=== PATIENT | male | born 1975 | race Caucasian/White ===

== ENCOUNTER → 2016-07-18 | Outpatient (CLI) | payer OTHER ==
[~2016-07-18] MED LIST: GAS RELIEF 8080 MG PO; HUMALOG100 UNIT/1 SUBQ; KEFLEX500 MG PO; LANTUS SOL100 UNIT/1 SQ; LASIX 20 MG TAB20 MG PO; MORPHINE IR PO; MS CONTIN15 MG PO; NUCYNTA100 MG PO
== END ==
LOC: HYPER 07:03
DX: L89.619 Pressure ulcer of right heel, unspecified stage (principal); E11.621 Type 2 diabetes mellitus with foot ulcer; L97.811 Non-pressure chronic ulcer of other part of right lower leg limited to breakdown of skin; E11.51 Type 2 diabetes mellitus with diabetic peripheral angiopathy without gangrene; Z87.891 Personal history of nicotine dependence

== ENCOUNTER 2016-07-25 17:51 | Inpatient (IN) | payer OTHER ==
[~2016-07-25] VITALS: Ht 185.4 cm; Wt 95.3 kg
--- NOTE | ~2016-07-25 | HC ---
[facility] [place] [address] CONSULTATION Name: GURMEET MONREAL Room #: 427-P [facility] IN M.R.#: [id number] Admission: 07/25/16 Attend Phys: Madeline Adames MD Discharge: Date of : 77 Report #: [id number] THIS REPORT FOR: //name// CC: Madeline Adames DATE OF SERVICE: 07/26/2016 PERSONAL PHYSICIAN: Madeline Adames MD CHIEF COMPLAINT: Right foot cellulitis and abscess. HISTORY OF PRESENT ILLNESS: This is a white male who was seen yesterday in my wound clinic on an urgent walk-in basis for evaluation of progressive swelling and redness of his right lateral ankle region. The patient has currently been treated for the past several weeks for ulceration on the plantar aspect of his right heel. I saw the patient just 5 days ago and the patient seemed to be doing well. The patient states that just in the past 1-2 days, he has noticed increasing swelling in his right lateral ankle and had called in initially to be evaluated on Friday afternoon. However, we did not have any openings in the clinic. The patient was referred to the Emergency Department; however, he refused to go there. The patient then called yesterday morning, once again was stating that he was having progressive swelling and chills. The patient once again was referred to the Emergency Department, but states he would not go there. He wanted to come to the clinic. The patient was offered a walk-in time. I saw the patient and the patient did have a significant amount of edema and fluctuance consistent with an abscess on the right lateral ankle that was not present 5 days ago. The patient states he has had chills, but no fevers. The patient states he has had generalized malaise and loss of appetite. The patient denies any new trauma to the site. The patient denies any other associated complaints. PAST MEDICAL HISTORY: Significant for: 1. Cellulitis to right lower extremity approximately 1 month ago. 2. History of reflex sympathetic dystrophy. 3. History of lymphedema to right lower extremity. 4. History of inguinal lymphadenopathy found incidentally on a venous insufficiency Doppler. 5. The patient has type 2 diabetes, insulin-dependent. CURRENT MEDICATIONS: Multiple, I reviewed the patient's medication list. DRUG ALLERGIES: PENICILLIN and TRAMADOL. SOCIAL HISTORY: The patient has a history of smoking in the past, quit approximately 2 months ago. The patient denies alcohol use. [address] [address] CONSULTATION Name: GURMEET MONREAL Room #: 427-P [facility] IN .R.#: [id number] Admission: 07/25/16 Attend Phys: Madeline Adames MD Discharge: Date of : 77 Report #: [id number] FAMILY HISTORY: Not pertinent to current medical condition. REVIEW OF SYSTEMS: CONSTITUTIONAL: The patient has chills, but no fevers. NEUROLOGIC: The patient complained of generalized weakness, but no isolated weakness in arms or legs. EYES: No complaints. ENT: No complaints. CARDIAC: The patient has chronic lower extremity edema, right much greater than left, consistent with lymphedema, but no chest pain or palpitations. RESPIRATORY: The patient denies shortness breath, cough, wheezes. GASTROINTESTINAL: The patient denies generalized anorexia, but no nausea, vomiting, diarrhea or abdominal pain. GENITOURINARY: The patient denies urgency or frequency. MUSCULOSKELETAL: The patient has pain in his right lower extremity, specifically around the heel and ankle. SKIN: There is an open wound on the plantar aspect of the right heel as well as pustular abscess on the right lateral ankle. PHYSICAL EXAMINATION: VITAL SIGNS: T-max 36.9. Rest of his vitals are stable. GENERAL: This is an alert and oriented x 3, chronically ill-appearing white male who is in viyi-gg-jepzlkzb distress secondary to symptoms as well as anxiety. HEENT: Normocephalic, atraumatic. Mucous membranes are dry. Pupils are round. Sclerae white. NECK: Supple without JVD. LUNGS: Clear. HEART: Regular. ABDOMEN: Soft, nontender. EXTREMITIES: The patient has 3-4+ edema in the right lower extremity consistent with lymphedema. On the plantar aspect of the right heel, there is an open ulceration, which is a mix of granulation and slough, which probes on the medial aspect of the heel into the pustular swelling on the lateral aspect of the ankle. I went in approximately 10 cm. There is a seropurulent drainage coming from the plantar aspect of the foot as well as the lateral pustular lesion. There is increased erythema, warmth and tenderness along the site. Left lower extremity has 1-2+ edema without any open ulcerations. NEUROLOGIC: Cranial nerves 2-12 are grossly. Motor and sensory are grossly intact. LABORATORY DATA: White count 13.1, hemoglobin 8.9. Electrolytes within normal limits. BUN 11 and creatinine 0.7. Glucose on admission was 149. C-reactive protein is markedly elevated at 91.6, prealbumin low at 9.6, albumin low at 2.3. Sed rate was elevated at 81. MRI of the right foot is pending. [address] [address] CONSULTATION Name: GURMEET MONREAL Room #: 427-P [facility] IN .R.#: [id number] Admission: 07/25/16 Attend Phys: Madeline Adames MD Discharge: Date of : 77 Report #: [id number] WOUND CARE COURSE: At this time, I spoke at length with the patient. I told the patient that he is going to at least need incision and drainage of the abscess, if not possible surgical debridement and possibly even an amputation of the right lower extremity. He is very adamant that he does not want an amputation and will discuss this with the orthopedic physicians. Infectious Disease has started him on broad spectrum antibiotics. We will continue to watch the patient very closely. We will continue localized wound care, pending the surgical intervention by Orthopedics. IMPRESSION: 1. Chronic ulceration, plantar aspect of the right heel with subsequent cellulitis, now with abscess formation over the right lateral ankle. 2. Type 2 diabetes. 3. Chronic regional pain syndrome, right lower extremity. 4. Lymphedema, right lower extremity. PLAN: Described as above. We will continue to follow the patient. We will continue with local wound care as well as IV antibiotics. Orthopedic intervention for surgical debridement. <ELECTRONICALLY SIGNED> By: Andriy Bethea MD 07/29/16 1022 1116 13 Andriy Bethea MD /nt
--- NOTE | ~2016-07-25 | D ---
[facility] [place] [address] DISCHARGE SUMMARY Name: GURMEET MONREAL Room #: 427-P [facility] IN M.R.#: [id number] Admission: 07/25/16 Attend Phys: Madeline Adames MD Discharge: 07/29/16 Date of : 77 Report #: [id number] THIS REPORT FOR: //name// CC: Madeline Adames DATE OF SERVICE: 07/29/2016 HOSPITAL COURSE: The patient is a 41-year-old diabetic with chronic lymphedema and complex regional pain syndrome/reflex sympathetic dystrophy of his lower extremities who has had previous hospitalization for an abscess and it appeared now rehospitalization for progressing wound of his right lower extremity. He was a direct admission from the wound clinic. An MRI showed significant progression of the cellulitis, abscess and now apparent osteomyelitis of his right foot. Consultation was obtained from Dr. Ratliff for infectious disease as well as Orthopedics for I and D, debridement, and possible amputation. On admission, his labs included an elevated white count of 13.1, low hemoglobin of 8.9, hematocrit 28 and elevated platelets of 730,000. His prealbumin was 9.6. His albumin was 2.3. His CRP was markedly elevated at 91.6 and a sed rate at 81. His glucose was 149. His differential had 72% segs, 3% bands, 15% lymphs. In addition, he has had recently been noted to have very marked lymphadenopathy which was unclear whether this was a reactive adenopathy or contributor to the severe lymphedema that he was suffering in that leg, so in addition to the above consultations, an interventional radiology consult was obtained for lymph node biopsies. This was done by Dr. Rodriguez on 07/26/2016. An MRI done on that day showed marked worsening of the appearance of the ankle with diffuse infection over an open heel wound, large lateral soft tissue abscess, infectious tenosynovitis, septic talotibial and talonavicular arthrosis and multifocal osteomyelitis. The patient was taken to the operating room by Dr. Molina on 07/26/2016 where they did an I and D of the foot and ankle and a placement of a [place] drain in the right foot, they appeared to do an irrigation, but not sharp debridement. It had been discussed with the patient to do an amputation, but he was unwilling to consider that option at this time. Because of this, he confirmed osteomyelitis with cultures positive for Cedecea and enterococcus faecalis, so arrangements were made for home IV antibiotics. A PICC line was placed. Pathology still pending from the lymph node biopsy. FINAL DIAGNOSES: Chronic ulceration of the right heel and ankle with some cellulitis, abscess formation and osteomyelitis, type 2 diabetes, complex regional pain syndrome, lymphedema, lymphadenopathy, moderate malnutrition present on admission, left tibial plateau fracture. [address] [address] DISCHARGE SUMMARY Name: GURMEET MONREAL Room #: 427-P [facility] IN M.R.#: [id number] Admission: 07/25/16 Attend Phys: Madeline Adames MD Discharge: 07/29/16 Date of : 77 Report #: [id number] PROCEDURE DONE: I and D of right foot and ankle, placement of Christine drain on right foot. There was irrigation, debridement noted on the operative report. By: 1818 0041 Madeline Adames MD /nt
--- NOTE | ~2016-07-25 | S ---
[facility] [address] [place] [address] SURGICAL PATH RPT PROCEDURE Name: ANUP LARRY Room #: 427-P DIS IN M.R.#: [id number] Admission: 07/25/16 Date of : 77 Discharge: 07/29/16 Report #: [id number] Path Case #: [id number] PATHOLOGY REPORT COLLECTION DATE: 07/26/2016 RECEIVED DATE: 07/26/2016 SUBMITTING PHYS: Dr. Madeline Adames OTHER PHYS: SPECIMEN(S) RECEIVED: A.Right groin node * * * * * * * * * * * * FINAL DIAGNOSIS: "Right groin node," needle biopsy: - Lymph node with mildly atypical lymphoplasmacytic infiltrate; no diagnostic evidence of lymphoma. (see comment) COMMENT: Sections show needle core biopsy fragments of lymph node with overall retained but mildly distorted lymph node architecture. Occasional follicles with well formed germinal centers containing polarized mantle/marginal zone are noted. There is an expansion of the interfollicular space by a lymphoplasmacytic infiltrate. Numerous plasma cells with only mild cytologic atypia are identified. The remaining lymphocytes are predominantly small, round, and mature appearing with condensed chromatin and scant cytoplasm with larger lymphoid cells within the germinal centers. No markedly atypical lymphoid cells, including Theron-Birgit cells, are identified. No granulomas, metastatic carcinoma, or other infiltrative processes are seen. To confirm the flow cytometry findings, further evaluate the plasma cells, and to identify cells in a tissue architectural context, properly controlled immunohistochemical stains are performed. (Block A1) PAX-5: highlights B-cells primarily in follicles CD3: highlights the expanded interfollicular T-cells CD10: stains the germinal centers BCL-6: stains the germinal centers BCL-2: the germinal centers are non-reactive CD23: stains residual follicular dendritic cell meshwork Cyclin D-1: lacks diffuse nuclear staining CD43: highlights the T-cells; no B-cell co-expression MUM-1: stains the increased interfollicular plasma cells CD138: highlights the increased interfollicular plasma cells AE1/AE3: non-reactive [place] and lambda in situ hybridization: plasma cells appear [facility] [address] [place] [address] SURGICAL PATH RPT PROCEDURE Name: ANUP LARRY Room #: 427-P DIS IN M.R.#: [id number] Admission: 07/25/16 Date of : 77 Discharge: 07/29/16 Report #: [id number] Path Case #: [id number] polyclonal Flow cytometric immunophenotypic analysis was performed at [facility]. The diagnosis is "no immunophenotypic evidence for non-Hodgkin lymphoma detected." There are 92.8% lymphocytes. Of the lymphocytes, there are 58% T-cells with a CD4/CD8 ratio of 4.4 and no aberrant T cell antigen expression and 34% polyclonal B-cells (kappa lambda ratio 1.54). No immunophenotypic evidence for B-cell or T-cell non-Hodgkin lymphoma is detected in this specimen. Please see separate flow cytometry report from [facility] ([id number]). Overall, the diagnosis is lymph node with a mildly atypical lymphoplasmacytic infiltrate. There is no diagnostic evidence of lymphoma. Clinical and radiographic correlation is required. Of note, this is a small portion of a larger lesion and may not be entirely parts sales representative. If there is a strong clinical suspicion for a lymphoproliferative process, complete morphological evaluation of an involved lymph node may provide additional information, if clinically indicated. The current case is co-reviewed with Dr. Darlene Romo. Please see also the fine needle aspirate ([id number]). (CLW:; d/t: 07/30/16) PATHOLOGIST: Shanita Farrar M.D. REPORT ELECTRONICALLY SIGNED BY: Shanita Farrar M.D. DATE/TIME: 07/30/2016 21:50 * * * * * * * * * * * * GROSS PATHOLOGY: Received in formalin labeled "Anup Larry, right enlarged node, groin," are 5 distinct needle cores of morales soft tissue ranging from 1.1 to 2.0 cm in length, which are submitted entirely in cassette A1. A portion of the specimen was sent to [facility] for special studies from [facility]. (KAH; 07/26/2016) CLINICAL HISTORY: None provided INITIAL CPT CODE(S): A; 69728, 29046, 89261, 57669, 11646, 28527, 46815, 01060, 34970, 03637, 93407, 39440, 25983, 47393 Professional services performed by [facility] at [facility] [address] [place] [address] Technical services performed by [facility] at [address] [place] [address], [address], [place] [address]. [facility] [address] [place] [address] SURGICAL PATH RPT PROCEDURE Name: ANUP LARRY Room #: 427-P DIS IN M.R.#: [id number] Admission: 07/25/16 Date of : 77 Discharge: 07/29/16 Report #: [id number] Path Case #: [id number] [facility] [address] [address] PHONE: [phone] DIRECTOR: Abiodun Solomon M.D. * * * END OF REPORT * * *
--- NOTE | ~2016-07-25 | HC ---
[facility] [place] [address] CONSULTATION Name: GURMEET MONREAL Room #: 427-P [facility] IN M.R.#: [id number] Admission: 07/25/16 Attend Phys: Madeline Adames MD Discharge: Date of : 77 Report #: [id number] THIS REPORT FOR: //name// CC: Madeline Adames REASON FOR CONSULTATION: Right foot and ankle infection. HISTORY OF PRESENT ILLNESS: The patient is a 41-year-old diabetic with chronic lymphedema involving the right lower extremity. He has had a plantar ulcer over the posterior aspect of his foot for several weeks. He was actually hospitalized on June 20, for this issue. He had associated cellulitis. MRI scan showed evidence of chronic fracture of the calcaneus body with fracture of the cuboid, extensive marrow edema throughout the distal tibia, fibula, calcaneus, talus, and cuboid. No definite abscess. No cultures were available. He was treated with cefazolin, then followed up with cephalexin. He had vascular studies also done, which showed no evidence of high-grade obstruction either arterial or venous. He continued treatment of his lymphedema and his plantar foot wound. For the last several days, he has noticed increased swelling with fluid buildup lateral ankle. Hospitalized for further evaluation. No fever, chills, or sweats. He has a fair amount of pain in the foot and ankle. REVIEW OF SYSTEMS: No cardiopulmonary, GI or complaints. ALLERGIES: PENICILLIN, although tolerates amoxicillin and cephalosporins. Allergic to LEVEMIR and TRAMADOL. MEDICATIONS: As noted on his MAR. PAST MEDICAL HISTORY, FAMILY HISTORY, AND SOCIAL HISTORY: Unchanged from his previous consultation. He is a nonsmoker. PHYSICAL EXAMINATION: VITAL SIGNS: Afebrile and hemodynamically stable. GENERAL: He was alert, cooperative, and pleasant, in no acute distress. ABDOMEN: Soft. EXTREMITIES: The right lower extremity had 4+ edema with a large wound over the plantar aspect of his hindfoot. There was a sinus tract, which tracked laterally. He had extensive swelling over the lateral aspect of his ankle. There was a large fluctuant mass in this region. He had erythema extending from the foot up to the pretibial leg about half way up his leg. 2+ edema in the left lower extremity. LABORATORY STUDIES: Sedimentation rate 81. Hemoglobin 8.9, white count was 13.1, platelet count 730,000. He had 72% segs and 3% bands. Sodium 133, potassium 4.5, bicarbonate 30, and creatinine 0.7. Liver function test normal. Alk phos 178. Albumin at 2.3. Blood cultures are pending. [address] [address] CONSULTATION Name: GURMEET MONREAL Room #: 427-P [facility] IN M.R.#: [id number] Admission: 07/25/16 Attend Phys: Madeline Adames MD Discharge: Date of : 77 Report #: [id number] IMPRESSION: A 41-year-old with diabetic foot infection, neuropathic disease and chronic lymphedema. I suspect polymicrobial infection likely, although Staph or strep could still cause this type of infection. He has fractures throughout his mid and hindfoot. I do not think the foot is salvageable. Recommend culturing the foot drainage for aerobic and anaerobic bacteria. We will begin broad antibiotic coverage and await surgical evaluation. <ELECTRONICALLY SIGNED> By: Jim Ratliff MD 07/26/16 1328 2112 1203 Jim Ratliff MD /nt
--- NOTE | ~2016-07-25 | O ---
[facility] [place] [address] OPERATIVE REPORT Name: GURMEET MONREAL Room #: 427-P [facility] IN M.R.#: [id number] Admission: 07/25/16 Attend Phys: Madeline Adames MD Discharge: Date of : 77 Report #: [id number] THIS REPORT FOR: //name// CC: Madeline Adames DATE OF SERVICE: 07/26/2016 PREOPERATIVE DIAGNOSIS: Right diabetic foot and ankle abscess with osteomyelitis and chronic ulceration stage IV of the heel. POSTOPERATIVE DIAGNOSIS: Right diabetic foot and ankle abscess with osteomyelitis and chronic ulceration stage IV of the heel. PROCEDURES: 1. I and D right foot and ankle. 2. Placement of a [place] drain in the right foot. SURGEON: Jerman Molina M.D. WEAVE DEFECT CHARTING CLERK: Linda Romero PA-C. ANESTHESIA: LMA. COMPLICATIONS: None. SPECIMENS: Cultures were taken of the purulence in the foot. ESTIMATED BLOOD LOSS: 25 mL. CONDITION UPON LEAVING THE OR: Stable. INDICATIONS FOR PROCEDURE: The patient is a 41-year-old gentleman who has diabetes. He has had ulceration over his right heel that has gone on to have significant swelling of his foot and ankle. He had an x-ray as well as MRI scan showing to have an abscess over his lateral foot and ankle as well as chronic osteomyelitis with chronic wound of the heel. After discussion with him including treatment options of irrigation and debridement versus below knee amputation, he elected for irrigation and debridement. DESCRIPTION OF PROCEDURE: Risks, benefits, alternatives, complications were discussed in detail with the patient including but not limited to risk of anesthesia, risk of damage to nerves, arteries, blood vessels, risk for continued infection, bleeding and need for further operations including below knee amputation. Informed consent was obtained from the patient. Right foot was appropriately marked in the preoperative holding area. He was brought to the operating room and placed in supine position on operating room table. [facility] [address] [place] [address] OPERATIVE REPORT Name: GURMEET MONREAL Adeline Room #: 427-P [facility] IN ..#: [id number] Admission: 07/25/16 Attend Phys: Madeline Adames MD Discharge: Date of : 77 Report #: [id number] anesthesia was induced without complication. Tourniquet was placed on the right thigh. Right lower extremity was prepped and draped in normal sterile fashion. He was previously on antibiotics for his osteomyelitis ____ antibiotics were given. Timeout was performed properly identifying the patient, procedure as well as the instrumentation. All in the operating room were in agreement. There was a large fluctuant area over his lateral ankle and an incision centered over this was made with a #10 blade. Upon entering the subcutaneous tissue, a large amount of purulent fluid was expressed draining from the foot. Cultures of his fluid were taken. The wound was then digitally explored and there was communication through the mid foot all the way through to the ulcer that was at the inferior aspect of the heel. This area was then thoroughly irrigated with normal saline using pulse lavage. After thorough irrigation and debridement, a [place] drain was placed on the wound and extending all the way through the calcaneal ulcer. An incision was closed with 3-0 nylon. Soft dressing of Xeroform, 4 x 4s, ABD, Kerlix and Niraj wrap were applied. The patient tolerated this procedure well and went to the recovery room under care of anesthesia postoperatively. <ELECTRONICALLY SIGNED> By: Jerman Molina MD 07/29/16 1516 1516 1626 Jerman Molina MD /nt
[2016-07-25 17:54] VITALS: BP 123/83
[2016-07-25 18:35] LABS: HEMOGLOBIN 8.9 gm/dL (14.0-18.0); MCH 23.6 pg (26.0-34.0); MCHC 31.9 g/dL (28.0-37.0); PLATELET COUNT 730 thou/uL (150-400); RBC 3.78 mil/uL (4.50-6.00); RDW 17.4 % (10.5-14.5); WBC 13.1 thou/uL (4.0-11.0)
[2016-07-25 18:38] LABS: MANUAL DIFF YES
[2016-07-25 18:45] LABS: CALCIUM 8.6 mg/dL (8.5-10.1); CREATININE 0.7 mg/dL (0.7-1.3); POTASSIUM 4.5 mmol/L (3.5-5.1)
[2016-07-25 18:49] LABS: ALBUMIN 2.3 g/dL (3.4-5.0); TOTAL BILIRUBIN 0.3 mg/dL (<0.1-1.0); TOTAL PROTEIN 7.1 g/dL (6.4-8.2)
[2016-07-25 19:00] LABS: ABSOLUTE NEUTROPHILS 9.8 thou/uL (1.4-8.2); ANISOCYTOSIS 1+; MICROCYTES 1+; TOTAL CELL COUNT 100
[2016-07-25 19:01] LABS: HYPOCHROMASIA 1+
[2016-07-26] VITALS (7 sets, daily range): BP systolic 109–143; BP diastolic 67–87
[2016-07-27] VITALS (7 sets, daily range): BP systolic 101–122; BP diastolic 64–82
[2016-07-28 04:30] VITALS: BP 113/82
[2016-07-28 08:00] VITALS: BP 111/73
[2016-07-28 16:00] VITALS: BP 133/94
[2016-07-28 21:20] VITALS: BP 119/94
[2016-07-29] VITALS (7 sets, daily range): BP systolic 114–129; BP diastolic 77–84
== END 2016-07-29 18:55 | disposition home health service (06) | DRG 628 ==
LOC: ER 17:51 → EROBS 19:15 → 4E 19:15
PROVIDERS: Emergency Medicine
PROC: 0J9Q0ZZ Drainage of Right Foot Subcutaneous Tissue and Fascia, Open Approach (ICD-10-PCS; principal; 2016-07-26)
PROC: 07BH3ZX Excision of Right Inguinal Lymphatic, Percutaneous Approach, Diagnostic (ICD-10-PCS; 2016-07-26)
PROC: 02HV33Z Insertion of Infusion Device into Superior Vena Cava, Percutaneous Approach (ICD-10-PCS; 2016-07-29)
PROC: B548ZZA Ultrasonography of Superior Vena Cava, Guidance (ICD-10-PCS; 2016-07-29)
DX: E11.69 Type 2 diabetes mellitus with other specified complication (principal); E43 Unspecified severe protein-calorie malnutrition; L03.115 Cellulitis of right lower limb; M86.9 Osteomyelitis, unspecified; S82.142A Displaced bicondylar fracture of left tibia, initial encounter for closed fracture; L97.419 Non-pressure chronic ulcer of right heel and midfoot with unspecified severity; L97.319 Non-pressure chronic ulcer of right ankle with unspecified severity; L02.611 Cutaneous abscess of right foot; G90.50 Complex regional pain syndrome I, unspecified; I89.0 Lymphedema, not elsewhere classified; F32.9 Major depressive disorder, single episode, unspecified; F43.20 Adjustment disorder, unspecified; E11.621 Type 2 diabetes mellitus with foot ulcer; G62.9 Polyneuropathy, unspecified; G89.4 Chronic pain syndrome; Z68.27 Body mass index [BMI] 27.0-27.9, adult; Z90.49 Acquired absence of other specified parts of digestive tract; Z88.1 Allergy status to other antibiotic agents; Z88.0 Allergy status to penicillin; Z88.8 Allergy status to other drugs, medicaments and biological substances; Z79.4 Long term (current) use of insulin; Z87.891 Personal history of nicotine dependence; Z79.899 Other long term (current) drug therapy
CPT/HCPCS: 10783; 27000; 50010; 50101; 50386; 50612; 51412; 53078; 57091; 62110; 62900; 70005

== ENCOUNTER → 2016-07-25 | Outpatient (CLI) | payer OTHER | LOC: HYPER 09:22 | DX: E11.621 Type 2 diabetes mellitus with foot ulcer (principal); L97.511 Non-pressure chronic ulcer of other part of right foot limited to breakdown of skin; L97.411 Non-pressure chronic ulcer of right heel and midfoot limited to breakdown of skin; I70.235 Atherosclerosis of native arteries of right leg with ulceration of other part of foot; E11.622 Type 2 diabetes mellitus with other skin ulcer; L97.811 Non-pressure chronic ulcer of other part of right lower leg limited to breakdown of skin; L03.115 Cellulitis of right lower limb; I89.0 Lymphedema, not elsewhere classified; G90.523 Complex regional pain syndrome I of lower limb, bilateral; E43 Unspecified severe protein-calorie malnutrition; F17.210 Nicotine dependence, cigarettes, uncomplicated ==

== ENCOUNTER → 2016-07-31 | Outpatient (CLI) | payer OTHER ==
--- NOTE | ~2016-07-31 | CNG ---
[facility] [place] [address] CYTO-NONGYN REPORT PROCEDURE Name: ANUP LARRY Room #: PRE [facility] M.R.#: [id number] Admission: Date of : 77 Discharge: Report #: [id number] Path Case #: [id number] CYTOPATHOLOGY REPORT COLLECTION DATE: 07/26/2016 RECEIVED DATE: 07/26/2016 SUBMITTING PHYS: Dr. Madeline Adames OTHER PHYS: CLINICAL HISTORY: Right ankle abscess. See also [id number]. SPECIMEN(S) RECEIVED: A.Fine needle aspiration,Right groin lymph node * * * * * * * * * * * * FINAL DIAGNOSIS: Fine needle aspiration,right groin lymph node: - Polymorphous population of lymphocytes and plasma cells present (see comment). COMMENT: Please see the corresponding needle core biopsy of the right groin lymph node biopsy ([id number]) for additional information. Clinical and radiographic correlation is recommended. (CLW:; d/t: 07/30/16) PATHOLOGIST: Shanita Farrar M.D. REPORT ELECTRONICALLY SIGNED BY: Shanita Farrar M.D. DATE/TIME: 07/30/2016 21:34 * * * * * * * * * * * * GROSS PATHOLOGY: Fine needle aspiration,Right groin lymph node: The specimen is labeled "Anup Larry". Five mL of cloudy pink fluid unfixed from the needle rinse is submitted and one ThinPrep slide and a cell block were prepared from this material. (clt 4.) GAS TRUCK DRIVER(S): DAVE Mosquera[facility] INITIAL CPT CODE(S): A; 91779, 13789 Professional services performed by [facility] at [facility] [address], [place] [address] Technical services performed by [facility] at [address] [place] [address]., [address], [place] [address]. [facility] [address] [place] [address] CYTO-NONGYN REPORT PROCEDURE Name: ANUP LARRY Room #: FANNY Cai#: [id number] Admission: Date of : 77 Discharge: Report #: [id number] Path Case #: [id number] [facility] [address] [place] [address], [address] [place] [address] PHONE: [phone] DIRECTOR: Abiodun Solomon M.D. * * * END OF REPORT * * *
== END ==
LOC: HYPER 07:05
DX: E11.621 Type 2 diabetes mellitus with foot ulcer (principal); L97.512 Non-pressure chronic ulcer of other part of right foot with fat layer exposed; I70.235 Atherosclerosis of native arteries of right leg with ulceration of other part of foot; E11.622 Type 2 diabetes mellitus with other skin ulcer; L97.811 Non-pressure chronic ulcer of other part of right lower leg limited to breakdown of skin; I89.0 Lymphedema, not elsewhere classified; G90.523 Complex regional pain syndrome I of lower limb, bilateral; E43 Unspecified severe protein-calorie malnutrition; F17.200 Nicotine dependence, unspecified, uncomplicated